=== PATIENT | female | born 2000 | race Caucasian/White ===

== ENCOUNTER 2021-07-07 21:07 | Inpatient (IN) | payer MEDICAID, SELFPAY ==
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
[2021-07-07] MEDS: HYDROcodone-acetaminophen 5-325 mg Tablet 1 TAB PO (21:59)
[2021-07-07 22:14] VITALS: BP 131/88; PULSE 94; RESP 18; TEMP 36.4; O2SAT 100
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
[2021-07-08 06:00] VITALS: BP 132/89; PULSE 77; RESP 17; TEMP 36.7; O2SAT 94
[2021-07-08] MEDS: HYDROcodone-acetaminophen 5-325 mg Tablet 1 TAB PO ×3 (06:12→21:00)
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
[2021-07-08] MEDS: cephALEXin 500 mg Capsule PO ×4 (10:02→19:00)
[2021-07-08] MEDS: ziprasidone hcl 40 mg Capsule PO ×2 (10:02→17:24)
[2021-07-08] MEDS: ibuprofen 600 mg Tablet PO (10:02)
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
[2021-07-08 14:00] VITALS: BP 111/70; PULSE 115; RESP 17; TEMP 36.6; O2SAT 96
[2021-07-08 20:29] VITALS: RESP 16
--- NOTE | 2021-07-09 04:14 | PC.NURSE ---
[address] [place] given for hand pain. It was effective.
[2021-07-09] MEDS: ziprasidone hcl 40 mg Capsule PO (06:19)
[2021-07-09] MEDS: cephALEXin 500 mg Capsule PO ×4 (09:00→20:27)
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
[2021-07-09] MEDS: benztropine 1 mg Tablet PO ×2 (12:04→17:40)
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
[2021-07-09] MEDS: HYDROcodone-acetaminophen 5-325 mg Tablet 1 TAB PO (13:40)
[2021-07-09 14:00] VITALS: BP 113/72; PULSE 73; RESP 16; TEMP 36.6
--- NOTE | 2021-07-09 17:01 | PC.NURSE ---
Dr. Corral Called Dr. Ly to inform that jaw was tightening earlier after receiving Geodon. New orders received for Cogentin 1 MG PO BID with Geodon. Orders placed in chart.
[2021-07-09] MEDS: acetaminophen 325 mg Tablet 650 MG PO (17:39)
--- NOTE | 2021-07-09 17:46 | PC.NURSE ---
Held Medication Patient yelling and screaming, stating staff is poisoning her with Benadryl which she is allergic to. Reassured patient she has not received any benadryl from staff this shift. Verbally deescalated. Continues to complain of jaw pain. Agreed to take Cogentin for jaw pain, stated it helped last time she received it this shift. Patient refused Geodon. Dr. Ly notified of refusal and continued jaw pain. Ordered to hold PM dose and would address in the AM.
[2021-07-09 20:06] VITALS: BP 94/61; PULSE 80; RESP 17; TEMP 36.9; O2SAT 92
[2021-07-09] MEDS: trazodone 50 mg Tablet PO (20:27)
[2021-07-09] MEDS: ibuprofen 600 mg Tablet PO (20:27)
[2021-07-09] MEDS: OLANZapine 5 mg ODT PO (20:39)
[2021-07-10 06:00] VITALS: RESP 16
[2021-07-10] MEDS: ibuprofen 600 mg Tablet PO ×2 (08:11→16:21)
[2021-07-10] MEDS: hyDROXYzine 25 mg Capsule 50 MG PO ×2 (08:12→17:03)
[2021-07-10] MEDS: cephALEXin 500 mg Capsule PO ×4 (08:12→21:06)
--- NOTE | 2021-07-10 08:12 | PC.NURSE ---
PRN VISTARIL 50 MG GIVEN PO PER PT C/O ANXIETY. TEARFUL IN ROOM R/T PAIN IN HAND, PRN MOTRIN ALSO GIVEN AT THIS TIME
--- NOTE | 2021-07-10 09:29 | PC.OT ---
OT EVALUATION HELD; NURSING REQUESTS HOLD DUE TO RECENT MEDICATION FOR SLEEP. PATIENT IS SLEEPING SOUNDLY.
--- NOTE | 2021-07-10 11:24 | PC.NURSE ---
Neurovascular check to left hand WNL. No signs of infection observed. Dressing to left hand c/d/i. Pain controlled.
--- NOTE | 2021-07-10 11:43 | NPU.GN ---
[facility] Group Topic:Mental Health discussion General Mood of Group: Cheryl did not attend group .
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
[2021-07-10] MEDS: acetaminophen 325 mg Tablet 650 MG PO (12:45)
[2021-07-10 14:45] VITALS: BP 95/54; PULSE 84; RESP 15; TEMP 37.2; O2SAT 96
[2021-07-10 16:17] LABS: Basophils % 0.3 %; Eosinophils # 0.3 10^3/uL (0.0-0.8); Eosinophils % 4.5 %; Hemoglobin 11.3 g/dL (11.5-15.3); Lymphocytes # 1.9 10^3/uL (0.8-4.8); Mean Corpuscular HGB Conc 31.4 g/dL (30.0-36.0); Mean Corpuscular Volume 85.9 fl (81-99); Mean Platelet Volume 10.3 fL (7.4-10.4); Monocytes # 0.5 10^3/uL (0.2-0.9); Monocytes % 7.4 %; Neutrophils # 4.51 10^3/uL (1.8-7.7); Neutrophils % 61.5 %; Nucleated Red Blood Cells % 0 %; Platelet Count 291 10^3/cmm (130-400); Red Blood Count 4.19 10^6/uL (4.1-5.3); Red Cell Distribution Width 12.5 % (12.1-15.1); White Blood Count 7.3 10^3/uL (4.0-10.0)
[2021-07-10] MEDS: benztropine 1 mg Tablet PO (16:21)
--- NOTE | 2021-07-10 17:03 | PC.NURSE ---
PRN VISTARIL 50 MG GIVEN PO PER PT C/O STATED ANXIETY
[2021-07-10 17:22] LABS: Folate Level 7.7 ng/mL (4.8-37.3)
[2021-07-10 17:24] LABS: Alanine Aminotransferase 17 U/L (0-33); Albumin Level 3.9 g/dL (3.5-5.2); Alkaline Phosphatase 77 IU/L (35-105); Anion Gap 16.6 (5-19); Aspartate Amino Transferase 32 U/L (0-32); Blood Urea Nitrogen 21 mg/dL (6-20); Calcium 9.2 mg/dL (8.5-10.5); Carbon Dioxide 22 mmol/L (22-29); Chloride 102 mmol/L (98-107); Globulin 2.9 g/dL (1.3-4.6); Glomerular Filtration Rate 154.3 mL/min (90-130); Glucose 102 mg/dL (65-115); Iron 34 ug/dL (37-145); Osmolality Calculated 285 mOsm/kg (285-295); Percent Saturation 10.4 % (20-50); Potassium 4.6 mmol/L (3.5-5.1); Sodium 136 mmol/L (136-145); Total Bilirubin 0.2 mg/dL (0.15-1.2); Total Iron Binding Capacity 326 mcg/dl; Total Protein 6.8 g/dL (6.6-8.7); Unsaturated Iron Binding 292 ug/dL (112-347)
[2021-07-10 17:32] LABS: Vitamin B12 551 pg/mL (232-1245)
[2021-07-10 18:18] LABS: Thyroid Stimulating Hormone 0.66 uIU/mL (0.27-4.20)
[2021-07-10] MEDS: OLANZapine 10 mg TABLET PO (21:06)
[2021-07-10] MEDS: benztropine 1 mg Tablet 2 MG PO (21:07)
[2021-07-10 21:14] VITALS: BP 91/60; PULSE 62; RESP 17; TEMP 36.8; O2SAT 94
[2021-07-11 06:00] VITALS: RESP 19
[2021-07-11] MEDS: ibuprofen 600 mg Tablet PO ×3 (07:48→20:21)
[2021-07-11] MEDS: cephALEXin 500 mg Capsule PO ×4 (07:48→20:21)
--- NOTE | 2021-07-11 11:09 | NPU.GN ---
[facility] Topic:Positive Coping Skills General Mood of Group: Cheryl did not attend group today.
[2021-07-11 14:00] VITALS: BP 100/74; PULSE 74; RESP 16; TEMP 36.9; O2SAT 98
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
[2021-07-11] MEDS: hyDROXYzine 25 mg Capsule 50 MG PO (18:20)
[2021-07-11] MEDS: acetaminophen 325 mg Tablet 650 MG PO (18:20)
--- NOTE | 2021-07-11 18:21 | PC.NURSE ---
PRN VISTARIL 50 MG GIVEN PO PER PT C/O STATED ANXIETY
[2021-07-11] MEDS: OLANZapine 10 mg TABLET PO (20:21)
[2021-07-11] MEDS: benztropine 1 mg Tablet 2 MG PO (20:21)
[2021-07-11 22:00] VITALS: BP 105/56; PULSE 87; RESP 16; TEMP 36.7; O2SAT 90
--- NOTE | 2021-07-12 03:07 | PC.NURSE ---
2020- Rec'd IBU for pain. It was effective.
[2021-07-12 06:33] VITALS: RESP 16
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
[2021-07-12 08:54] VITALS: BP 105/56; PULSE 87; RESP 16; TEMP 36.7; O2SAT 90
[2021-07-12] MEDS: ibuprofen 600 mg Tablet PO (09:51)
[2021-07-12] MEDS: cephALEXin 500 mg Capsule PO ×2 (09:51→12:30)
[2021-07-12] MEDS: acetaminophen 325 mg Tablet 650 MG PO (11:02)
--- NOTE | 2021-07-12 11:28 | NPU.GN ---
[facility] Topic:Positive Thoughts/ Negative Thoughts General Mood of Group:Cheryl did not attend group.
--- NOTE | 2021-07-12 13:47 | PC.NURSE ---
PRN PT HAS C/O PAIN IN HAND. TOOK IBP WITH MORNING MEDS TO SOME EFFECT. TOOK PRN TYLENOL TO ASSIST AT 1102 TO GOOD EFFECT. HAND CLEANED AND DRESSING CHANGED. NO DRAINAGE NOTED. NO S/SX INFECTION. GOOD CIRCULATION NOTED TO ALL FINGERTIPS.
[2021-07-12 14:00] VITALS: BP 105/56; PULSE 87; RESP 16; TEMP 36.7; O2SAT 90
== END 2021-07-12 14:21 | disposition home or self-care (01) | DRG 914 ==
PROVIDERS: Student in an Organized Health Care Education/Training Program; Admitting Provider Psychiatry & Neurology Psychiatry; Visit Provider Psychiatry & Neurology Psychiatry
DX: T14.91XA Suicide attempt, initial encounter (principal); F20.9 Schizophrenia, unspecified; S61.002A Unspecified open wound of left thumb without damage to nail, initial encounter; F17.210 Nicotine dependence, cigarettes, uncomplicated; F15.10 Other stimulant abuse, uncomplicated
CPT/HCPCS: 80053; 82607; 82746; 83540; 83550; 84443; 85025; 97150; 97165